=== PATIENT | male | born 1955 | race Caucasian/White ===

== ENCOUNTER 2023-01-07 10:52 | Observation (INO) | payer MEDICARE ==
[~2023-01-07] VITALS: Ht 193 cm; Wt 138.3 kg
[2023-01-07 11:35] LABS: BASOPHILS ABSOLUTE AUTO 0.02 K/mm3 (0.00-0.23); BASOPHILS PERCENT AUTO 0 % (0-2); EOSINOPHILS ABSOLUTE AUTO 0.26 K/mm3 (0.00-0.68); EOSINOPHILS PERCENT AUTO 3 % (0-6); Hematocrit 47.2 % (37.0-53.0); Hemoglobin 15.9 g/dL (13.5-17.5); IMMATURE GRAN ABSOLUTE AUTO 0.03 K/mm3 (0.00-0.10); IMMATURE GRAN PERCENT AUTO 0 % (0-1); LYMPHOCYTES ABSOLUTE AUTO 2.94 K/mm3 (0.84-5.20); LYMPHOCYTES PERCENT AUTO 34 % (21-46); MONOCYTES PERCENT AUTO 6 % (4-13); Mean Corpuscular HGB 30.2 pg (26.0-34.0); Mean Corpuscular HGB Conc 33.7 g/dL (31.5-36.5); Mean Corpuscular Volume 90 fL (80-100); Mean Platelet Volume 10.1 fL (9.1-12.4); NEUTROPHILS ABSOLUTE AUTO 4.88 K/mm3 (1.96-9.15); NEUTROPHILS PERCENT AUTO 57 % (41-73); Platelet Count 182 K/mm3 (150-400); Red Blood Cell Count 5.27 M/mm3 (4.30-5.90); White Blood Cell Count 8.63 K/mm3 (4.00-11.30)
[2023-01-07 12:05] LABS: Alanine Aminotransfer (ALT/SGP 30 U/L (12-78); Albumin, Blood 3.5 g/dL (3.4-5.0); Albumin/Globulin Ratio 0.9 (0.8-1.8); Alk Phos 124 U/L (50-136); Anion Gap 4 mmol/L (6-16); Aspartate Aminotrans (AST/SGOT 20 U/L (12-37); Bilirubin, Total 0.3 mg/dL (0.1-1.0); Blood Urea Nitrogen 20 mg/dL (8-24); Bun/Creatinine Ratio 37.5 (12.0-20.0); CO2, Blood 25 mmol/L (21-32); Calcium, Blood 8.7 mg/dL (8.5-10.1); Chloride, Blood 105 mmol/L (98-108); Creatinine, Blood 0.53 mg/dL (0.60-1.20); Ethanol (Alcohol), Blood, Med <3 mg/dL; Globulin, Blood 3.8 g/dL (2.2-4.0); Glomerular Filtration Rate 110 (60-); Glucose, Blood 241 mg/dL (70-99); Sodium, Blood 134 mmol/L (136-145); Total Protein, Blood 7.3 g/dL (6.4-8.2)
[2023-01-07] MEDS ORDERED: Methocarbamol750 MG PO (13:07)
[2023-01-07] MEDS ORDERED: ZANAFLEX413 PO ×2 (13:08→13:11)
[2023-01-07] MEDS ORDERED: OXYCODONE-ACET1 EAC2 PO (13:08)
[2023-01-07] MEDS ORDERED: OZEMPIC1 MG/0.72 SC (13:08)
[2023-01-07] MEDS ORDERED: KLOR-CON 1010 ME9 PO (13:11)
[2023-01-07] MEDS ORDERED: ZOLPIDEM TARTRA10 MG PO (13:11)
[2023-01-07] MEDS ORDERED: LIPITOR80 MG PO (13:11)
[2023-01-07] MEDS ORDERED: CYMBALTA30 M2 PO (13:12)
[2023-01-07] MEDS ORDERED: CELEBREX200 MG PO (13:12)
[2023-01-07] MEDS ORDERED: LOSA50 PO (13:12)
[2023-01-07] MEDS ORDERED: GLIMEPIRIDE4 MG PO (13:13)
[2023-01-07] MEDS ORDERED: CARVEDILOL25 M9 PO (13:13)
[2023-01-07] MEDS ORDERED: NEURONTIN300 MG PO (13:13)
[2023-01-07 17:00] VITALS: BP 128/79
[2023-01-07] MEDS ORDERED: XARELTO20 MG PO (18:12)
[2023-01-07] MEDS ORDERED: ALBU90OI INH (18:13)
--- NOTE | 2023-01-07 18:35 | NUR ---
PT ADMITTED FROM ED IN WHEELCHAIR 1654- AMBULATED INDEPENDANT STEADY ON FEET, ONLY NEURO COMPLAINT PT STATES DIFFICULTY READING PHONE. DENIES HEADACHE OR ANY OTHER VISUAL DISTURBANCE. CECILLE. ORIENTED TO ROOM SET UP AND CALL LIGHT
[2023-01-07 20:09] VITALS: BP 111/75
--- NOTE | 2023-01-08 04:07 | NUR ---
SHIFT SUMMARY ADMITTED FOR CVA. FULL CODE. HOPEFUL FOR DC HOME WHEN STROKE WORK-UP COMPLETED. ON XARELTO. CARDIAC/ADA DIET. ACHS CBG'S. TELEMETRY: NSR @ [address] PATCH IN PLACE. ON RA. A&O X4. INDEPENDENT. CHRONIC BACK PAIN. HX: DM2, DVT/PE, CVA, TIA, HI, STENT.
[2023-01-08 04:37] VITALS: BP 117/74
[2023-01-08 06:10] LABS: Bun/Creatinine Ratio 31.5 (12.0-20.0); Calcium, Blood 8.2 mg/dL (8.5-10.1); Creatinine, Blood 0.57 mg/dL (0.60-1.20)
[2023-01-08 07:07] VITALS: BP 119/82
--- NOTE | 2023-01-08 09:00 | NUR ---
PT PLEASANT COOP A/O X4, DENIES PAIN OTHER THAN CHRONIC BACK PN. STATES NO RESIDUALS FROM STROKE. PT STATES FEELS READY TO GO HOME. NO SLURRING, MUMBLING, STRENGTH = BOTH SIDE AUDIOVISUAL LIBRARIAN. H/R REG, NO MURMUR NOTED, PER TELE 1' BLOCK, BBB, PAC'S, RATE 84, LUNGS LIGHTLY WHEEZY T/O. PT STATES NORMAL FOR HIM. ON R/A. RESP EASY, UNLAORED. STATES WANTS TO GO OUT TO SMOKE. BT X4. STATES LAST BM YEST. VOIDS INDEPANDANT TO BATHROOM. INDEPENDANT IN ROOM. BED IN LOW POSITION, CALL LITE IN REACH, CALLS APROP
--- NOTE | 2023-01-08 12:33 | NUR ---
DR DELPHINE MONTES GIVE GUM WITH CHE PATCH.
[2023-01-08] MEDS ORDERED: ASPI81CH PO (14:41)
[2023-01-08 14:45] VITALS: BP 113/76
--- NOTE | 2023-01-08 15:46 | NUR ---
DISCHARGE REVIEWED WITH PT . PT VERBALIZED UNDERSTAANDING MEDS AND INST. IV PULLED BY AIDE. TELE REMOVED BY AIDE. RETURNED. PT WHEELED TO DOOR BY AIDE.
== END 2023-01-08 15:38 | disposition home or self-care (01) ==
LOC: ER 10:52 → MEDS 14:47 → ENPENDDIS 01-08 12:30 → MEDS 01-08 15:38
PROVIDERS: Emergency Medicine; ADMIT Internal Medicine
DX: I63.9 Cerebral infarction, unspecified (principal); I25.10 Atherosclerotic heart disease of native coronary artery without angina pectoris; E11.9 Type 2 diabetes mellitus without complications; I10 Essential (primary) hypertension; J44.9 Chronic obstructive pulmonary disease, unspecified; Z86.718 Personal history of other venous thrombosis and embolism; Z86.711 Personal history of pulmonary embolism; Z95.5 Presence of coronary angioplasty implant and graft; E06.3 Autoimmune thyroiditis; M54.50 Low back pain, unspecified; G47.00 Insomnia, unspecified; F17.210 Nicotine dependence, cigarettes, uncomplicated; Z88.0 Allergy status to penicillin; Z79.899 Other long term (current) drug therapy
CPT/HCPCS: 36415; 70450; 70496; 70498; 80048; 80053; 82947; 85025; 93005; 93010; 93306; 99285-25; A9270; G0378; G0480; Q9967

== ENCOUNTER 2024-09-22 09:02 | Day surgery (SDC) | payer MEDICARE ==
[~2024-09-22] VITALS: Ht 193 cm; Wt 119.3 kg
[2024-09-22] VITALS (8 sets, daily range): BP systolic 102–120; BP diastolic 73–97
[~2024-09-22 09:02] MED LIST: ALBU90OI INH; ASPI81CH PO; CARVEDILOL25 M9 PO; CELEBREX200 MG PO; CYMBALTA30 M2 PO; EUTHYROX50 MC1 PO; FUROSEMIDE40 MG PO; GLIMEPIRIDE4 MG PO; KLOR-CON 1010 ME9; KLOR-CON 1010 ME9 PO; LIPITOR80 MG PO; LOSA50 PO; Methocarbamol750 MG PO; NEURONTIN300 MG PO; OXYCODONE-ACET1 EAC2 PO; OZEMPIC1 MG/0.72 SC; XARELTO20 MG PO; ZANAFLEX413 PO; ZOLPIDEM TARTRA10 MG PO
[2024-09-22] MEDS ORDERED: NS 1,000 ML IV ONE (09:27)
[2024-09-22] MEDS ORDERED: METF500 PO (09:43)
[2024-09-22] MEDS ORDERED: METO50ER PO (09:44)
[2024-09-22] MEDS ORDERED: propofoL 20 ML IV ONE (09:50)
--- NOTE | 2024-09-22 11:01 | NUR ---
PT AND SPOUSE VERBALIZE D/C INSTRUCTIONS. IV D/C CATHETER INTACT. PT WHEELED OUT OF DEPT WITH D/C INSTRUCTIONS IN HAND.
== END 2024-09-22 11:00 | disposition home or self-care (01) ==
LOC: MHTC 09:02
DX: I48.19 Other persistent atrial fibrillation (principal); I48.4 Atypical atrial flutter; I25.10 Atherosclerotic heart disease of native coronary artery without angina pectoris; I25.2 Old myocardial infarction; E11.9 Type 2 diabetes mellitus without complications; E78.5 Hyperlipidemia, unspecified; I10 Essential (primary) hypertension; E03.9 Hypothyroidism, unspecified; F17.210 Nicotine dependence, cigarettes, uncomplicated; Z79.01 Long term (current) use of anticoagulants; Z79.84 Long term (current) use of oral hypoglycemic drugs; Z79.899 Other long term (current) drug therapy; Z88.0 Allergy status to penicillin; Z88.1 Allergy status to other antibiotic agents; Z86.79 Personal history of other diseases of the circulatory system; Z98.890 Other specified postprocedural states; Z86.73 Personal history of transient ischemic attack (TIA), and cerebral infarction without residual deficits
CPT/HCPCS: 92960; 93005; 93010; J2704; J7030